=== PATIENT | male | born 1980 | race African-American/Black ===

== ENCOUNTER 2018-04-21 12:05 | Emergency (ER) | payer SELFPAY ==
[2018-04-21] MEDS ORDERED: TDAP ADULT 0.5 ML INJ (BOOSTRIX) IM ONE (12:08)
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
--- NOTE | 2018-04-21 12:40 | CPEKG ---
Test Reason : OPEN Blood Pressure : / mmHG Vent. Rate : 075 BPM Atrial Rate : 074 BPM P-R Int : 185 ms QRS Dur : 089 ms QT Int : 383 ms P-R-T Axes : 048 078 041 degrees QTc Int : [address] elev, probable normal early repol pattern Confirmed by Jose Antonio Casas ([id number]) on 04/21/2018 12:39:55 PM Referred By: Confirmed By:Jose Antonio Casas
[2018-04-21 13:44] LABS: CREATINE KINASE 287 IU/L (0-224)
[2018-04-21 14:10] VITALS: BP 125/84
== END 2018-04-21 14:09 | disposition home or self-care (01) ==
DX: T75.4XXA Electrocution, initial encounter (principal); S50.811A Abrasion of right forearm, initial encounter; Y93.E9 Activity, other interior property and clothing maintenance; Y99.0 Civilian activity done for income or pay; Z23 Encounter for immunization